=== PATIENT | male | born 1965 | race Asian ===

== ENCOUNTER 2017-07-02 14:52 | Emergency (ER) | payer BC ==
[~2017-07-02] VITALS: Ht 172.7 cm; Wt 108.9 kg
[2017-07-02 15:13] VITALS: BP_SYST 161
[2017-07-02] MEDS ORDERED: IPRATROPIUM/ALBUTEROL SULFATE 3 ML AMPUL.NEB INH ONE (15:15)
[2017-07-02] MEDS ORDERED: AZITHROMYCIN 250 MG TABLET PO ONE (15:15)
[2017-07-02] MEDS ORDERED: ACETAMINOPHEN/CODEINE 300 MG-30 MG TABLET PO ONE (15:15)
[2017-07-02 18:00] VITALS: BP_SYST 160
== END 2017-07-02 18:00 | disposition home or self-care (01) ==
LOC: SED 14:52
DX: J18.9 Pneumonia, unspecified organism (principal)
CPT/HCPCS: 71045; 94640; 99283; Q0144